=== PATIENT | female | born 1970 | race Caucasian/White ===

== ENCOUNTER → 2020-05-13 08:50 | Outpatient (BNVA) | payer BC, SELFPAY | PROVIDERS: PCP Internal Medicine; Visit Provider Physician Assistant | DX: Z76.89 Persons encountering health services in other specified circumstances (principal) ==

== ENCOUNTER → 2020-06-02 08:13 | Outpatient (BNVA) | payer BC, SELFPAY | PROVIDERS: PCP Internal Medicine; Visit Provider Dietitian, Registered | DX: Z76.89 Persons encountering health services in other specified circumstances (principal) ==

== ENCOUNTER 2020-07-27 08:53 | Day surgery (SDC) | payer BC, SELFPAY ==
[2020-07-20 15:30] VITALS: BMI 29.5
--- NOTE | 2020-07-26 10:58 | HO.ANESPROP2 ---
Documented by User: Karla Kulkarni 07/26/20 11:00 HPI - Anesthesia Eval Consult details Narrative: 50yo F for Colonoscopy PMFSH Past Medical History Medical History Anemia Arthralgia Central vestibular vertigo Lab test negative for COVID-19 virus Migraine Overweight (BMI 25.0-29.9) Varicose veins of bilateral lower extremities with other complications Vitamin D deficiency Family History Family History Father Stroke Diabetes mellitus Mother Diabetes mellitus HTN (hypertension) Son No problems noted. Son No problems noted. Son No problems noted. Surgical History Surgical History S/P tonsillectomy Social History Social History Are you a primary chronic care nurse to a significant other at home: No Do you presently have visiting nurse or other home services: No Alcohol intake: never Smoking Status: Never smoker Use of substances other than those prescribed or required for medical reasons: No Have you been hit, kicked, punched, or otherwise hurt by someone within the past year? If so, by whom?: No Advance Directives Information Provided: No Recently lost weight without trying: No Meds Allergies Allergy/AdvReac Type Severity Reaction Status Date / Time No Known Allergies Allergy Verified 06/07/20 13:23 [No Known Allergies*] Home Medications Medication Instructions Recorded Confirmed Type acetaminophen-caffeine 500 mg-65 1 tab PO Q4H PRN 05/26/20 07/20/20 History mg tablet amitriptyline 50 mg tablet 50 mg PO DAILY 06/22/20 07/20/20 History meclizine 12.5 mg PO BEDTIME 07/20/20 07/20/20 History Exam Exam Date and Time: July 26, 2020 1058 Height,Weight and Vital Signs: Height 5 ft 3 in Weight 75.75 kg Assessment and Plan Assessment Anesthesia Assessment: Chart Reviewed Documented by User: Simone Mariee 07/27/20 09:47 [facility] Past Medical History Medical History Anemia Arthralgia Central vestibular vertigo Lab test negative for COVID-19 virus Migraine Overweight (BMI 25.0-29.9) Varicose veins of bilateral lower extremities with other complications Vitamin D deficiency Family History Family History Father Stroke Diabetes mellitus Mother Diabetes mellitus HTN (hypertension) Son No problems noted. Son No problems noted. Son No problems noted. Surgical History Surgical History S/P tonsillectomy Social History Social History Are you a primary chronic care nurse to a significant other at home: No Do you presently have visiting nurse or other home services: No Alcohol intake: never Smoking Status: Never smoker Use of substances other than those prescribed or required for medical reasons: No Have you been hit, kicked, punched, or otherwise hurt by someone within the past year? If so, by whom?: No Advance Directives Information Provided: No Recently lost weight without trying: No Meds Allergies Allergy/AdvReac Type Severity Reaction Status Date / Time No Known Allergies Allergy Verified 06/07/20 13:23 [No Known Allergies*] Home Medications Medication Instructions Recorded Confirmed Type acetaminophen-caffeine 500 mg-65 1 tab PO Q4H PRN 05/26/20 07/20/20 History mg tablet amitriptyline 50 mg tablet 50 mg PO DAILY 06/22/20 07/20/20 History meclizine 12.5 mg PO BEDTIME 07/20/20 07/20/20 History Exam Airway Mallampati Class: II TM Dist: >3cm Neck ROM: Full
[2020-07-27 09:17] VITALS: BP 103/73; PULSE 77; RESP 16; TEMP 37; O2SAT 97
[2020-07-27] MEDS: Lactated Ringers 1,000 ML 100 ML IVCONT (09:27)
--- NOTE | 2020-07-27 09:59 | P.BOP_ITS ---
Brief Operative Note Date of Service: 07/27/20 Pre-op diagnosis: colon screen Post-op diagnosis: same Procedure: Operative Information Procedure Description: Colonoscopy COLONOSCOPY Instrument: Olympus variable stiffness pediatric scope 190L Colonoscopy Monitoring: Vital signs and clinical assessment, continuous EKG monitoring, Pulse oximetry, Carbon Dioxide monitoring and blood pressure monitoring were done throughout the procedure. Colon withdrawal time was 15 minutes. Procedure: The patient was placed in the left lateral decubitis position and pre-procedure medications were administered. After a digital rectal examination of the ano-rectum, the video colonoscope was inserted into the rectum and advanced through the colon to the cecum/TI. The colonoscope was slowly withdrawn in a retrograde panoramic fashion and the colon mucosa was carefully examined including a retroflexed view of the rectum. Findings and interventions are described below. Procedure Difficulty: easy Findings: Terminal Ileum-normal Cecum:normal Ascending Colon: normal Transverse Colon -normal Descending Colon:normal Sigmoid Colon: normal Rectum: Retroflexion with small internal hemorrhoids, grade I with some red garay Anorectum - normal Colon preparation: [place] Bowel Preparation Scale Right colon; 2 Transverse colon: 2 Left colon; 1 (0 = Unprepared colon segment with mucosa not seen due to solid stool that cannot be cleared. 1 = Portion of mucosa of the colon segment seen, but other areas of the colon segment not well seen due to staining, residual stool and/or opaque liquid. 2 = Minor amount of residual staining, small fragments of stool and/or opaque liquid, but mucosa of colon segment seen well. 3 = Entire mucosa of colon segment seen well with no residual staining, small fragments of stool or opaque liquid) Impression and Post Procedure Diagnosis: internal hemorrhoids Plan: High fiber diet leaflet Avoid straining at stool, epsom salts and sitz bath, anusol supps or cream prn Repeat Colonoscopy in 5 years due to prep or earlier if clinically indicated Above findings were reviewed with the patient and relevant handouts were provided if indicated. Surgeon: Win Novoa MD Anesthesia: MAC Estimated blood loss (mL): 0 Condition: stable Disposition: PACU
--- NOTE | 2020-07-27 09:59 | MHC.SHP ---
Pre-Procedural Eval Section B Chief Complaint: family hx colon polyps,screening Relevant Family History (Specify if Yes): No Relevant Social History: None Present Medications: see Short Stay Collaborative assessment Medical History: Significant History (Anemia Arthralgia Central vestibular vertigo Lab test negative for COVID-19 virus Migraine Overweight (BMI 25.0-29.9) Varicose veins of bilateral lower extremities with other complications Vitamin D deficiency) History of Previous Operations: Relevant previous surgery/procedure and date(s) (tonsils) Allergies: Allergies Allergy/AdvReac Type Severity Reaction Status Date / Time No Known Allergies Allergy Verified 06/07/20 13:23 [No Known Allergies*] Review of Systems Sugical H&P ROS: Negative: Constitution, Cardiovascular, Respiratory, Neurological, Psychiatric, Hem-Onc, Allergic/Immunologic, Gastrointestinal, Genitourinary, Musculoskeletal, Integumentary, Endocrine and Eyes/Ears/Nose/Throat Exam Surgical H&P Exam: Normal: HEENT, Normal: Heart, Normal: Lungs, Normal: Extremities, Normal: Abdomen, Normal: Skin and Normal: Neurological Plan Diagnosis/Plan: Unchanged I have reviewed the history and physical and performed a pertinent physical examination on my patient. No changes have occurred unless specified.
[2020-07-27 10:43] VITALS: BP 93/57; PULSE 79; RESP 14; TEMP 36.6; O2SAT 97
[2020-07-27 10:52] VITALS: BP 101/70; PULSE 76; RESP 14; TEMP 36.6; O2SAT 99
--- NOTE | 2020-07-27 14:11 | HO.POSTANES ---
Post Anesthesia Evaluation Post Anesthesia Evaluation Vital Signs: Vital Signs Temp Pulse Resp BP Pulse Ox 07/27/20 10:52 97.8 F 76 14 101/70 99 07/27/20 10:43 97.8 F 79 14 93/57 L 97 07/27/20 09:17 98.6 F 77 16 103/73 97 Anesthesia: Monitored Mental Status: Awake Pain Control: Satisfactory Nausea/Vomiting: None Hydration: Adequate Anesthesia-Related Issues: No Anes. Related Issues
== END 2020-07-27 11:33 | disposition home or self-care (01) ==
PROVIDERS: PCP Internal Medicine; Visit Provider Internal Medicine Gastroenterology
PROC: 0DJD8ZZ Inspection of Lower Intestinal Tract, Via Natural or Artificial Opening Endoscopic (ICD-10-PCS; CPT 45378; principal; 2020-07-27 10:40)
DX: Z12.11 Encounter for screening for malignant neoplasm of colon (principal); Z83.71 Family history of colonic polyps; K64.0 First degree hemorrhoids; D64.9 Anemia, unspecified; E55.9 Vitamin D deficiency, unspecified; H81.4 Vertigo of central origin; Z79.899 Other long term (current) drug therapy
CPT/HCPCS: 45378

== ENCOUNTER → 2020-09-14 09:27 | Outpatient (BNVA) | payer BC, SELFPAY | PROVIDERS: Visit Provider Nurse Practitioner ==

== ENCOUNTER 2020-12-27 08:42 | Outpatient (REF) | payer OTHER, SELFPAY ==
--- NOTE | ~2020-12-27 | XR_ITS ---
EXAMINATION: XR KNEE, LEFT CLINICAL INFORMATION: Pain COMPARISON: None TECHNIQUE: Four views of the left knee. FINDINGS: Bone alignment is normal. No fracture or dislocation is seen. The joint spaces are normal. There is a joint effusion. XR/XR knee LT 4V IMPRESSION: Joint effusion otherwise unremarkable exam.
== END 2020-12-27 08:43 | disposition home or self-care (01) ==
LOC: HO.HMGCX 08:42
PROVIDERS: PCP Internal Medicine; Visit Provider Nurse Practitioner Family
DX: M25.562 Pain in left knee (principal); M25.462 Effusion, left knee
CPT/HCPCS: 73564

== ENCOUNTER → 2020-12-30 08:57 | Outpatient (BNVA) | payer OTHER, SELFPAY | PROVIDERS: Visit Provider Orthopaedic Surgery ==

== ENCOUNTER → 2021-01-24 12:48 | Outpatient (BNVA) | payer OTHER, SELFPAY | PROVIDERS: Visit Provider Orthopaedic Surgery | DX: M22.2X2 Patellofemoral disorders, left knee (principal) | CPT/HCPCS: 20610; J1040 ==

== ENCOUNTER → 2021-06-22 13:47 | Outpatient (BNVA) | payer OTHER, SELFPAY | PROVIDERS: PCP Internal Medicine; Visit Provider Orthopaedic Surgery ==

== ENCOUNTER 2023-02-08 12:04 | Outpatient (REF) | payer OTHER, SELFPAY ==
--- NOTE | ~2023-02-08 | XR_ITS ---
EXAMINATION: XR HAND, RIGHT CLINICAL INFORMATION: Pain COMPARISON: Radiographs 08/24/2015 TECHNIQUE: 3 views of the hand FINDINGS: No fracture or dislocation. Advanced degenerative changes of the first metacarpophalangeal joint progressed from prior with complete loss of joint space and subchondral sclerosis. No cortical erosion. Soft tissues are unremarkable. XR/XR hand RT min 3V IMPRESSION: Advanced degenerative changes of the first metacarpophalangeal joint progressed from prior.
== END 2023-02-08 12:05 | disposition home or self-care (01) ==
LOC: HO.HOSX 12:04
PROVIDERS: Visit Provider Orthopaedic Surgery
DX: M18.11 Unilateral primary osteoarthritis of first carpometacarpal joint, right hand (principal); M18.12 Unilateral primary osteoarthritis of first carpometacarpal joint, left hand; M65.9 Synovitis and tenosynovitis, unspecified
CPT/HCPCS: 20600; 73130; J1020

== ENCOUNTER 2023-03-11 10:15 | Outpatient (AMB) | payer OTHER, SELFPAY ==
--- NOTE | 2023-03-11 10:25 | MHC.PC.OV ---
Intake Visit Reasons: RT FT injury Intake Note: pt is here today to recheck right foot injury 1.5 weeks ago al during her vacation, went to [facility] where x-ray done did not show any acute finding Allergies No Known Allergies [No Known Allergies*] Allergy (Verified 03/11/23 10:33) Medication List - Last Reconciled 03/11/23 by Tere Renae MD acetaminophen-caffeine 500-65 mg (Excedrin Tension Headache) 1 tab PO Q4H PRN meclizine 25 mg PO DAILY PRN Tobacco use date assessed: 03/11/23 HPI RT FT injury HPI Details 52-year-old lady presents today for follow-up. Was seen at the [facility] 03/09/2023 complaining of pain in her right foot, which started during vacation 1.5 weeks prior to that visit. Patient states that [place] the [place] on [place] in jumped off it, landed wrong and right big toe well underneath her right foot. X-ray of foot did not show any abnormality. She was diagnosed to have gouty arthritis of right foot and placed on prednisone 20 mg daily for 4 days, and indomethacin 50 mg 1 capsule twice a day as needed for pain. Patient however did not fill any of these prescriptions. She has been advised to rest affected extremity, ice it, and elevate as much as possible, which she has been doing, but still having pain on dorsal lateral aspect of right MTP joint with weight-bearing. [facility] Medical History (Updated 03/11/23 @ 10:42 by Tere Renae MD) Anemia Arthralgia Central vestibular vertigo Lab test negative for COVID-19 virus Migraine Overweight (BMI 25.0-29.9) Pain of right great toe Tenosynovitis of both hands Varicose veins of bilateral lower extremities with other complications Vitamin D deficiency Surgical History Hx of colonoscopy S/P tonsillectomy Family History Father Stroke Diabetes mellitus Mother Diabetes mellitus HTN (hypertension) Son No problems noted. Son No problems noted. Son No problems noted. 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 Cognitive needs: No Hearing needs: No Vision needs: Yes Review of Systems Const All systems reviewed & are unremarkable except as noted in HPI and below Physical exam (Primary Care) Tobacco/Smoking Status: Tobacco use Status Tobacco use date assessed 03/11/23 03/11/23 10:27 Patient Tobacco Use Status Never used Tobacco 03/11/23 10:27 e-Cigarette/Vaping Use Never Used 03/11/23 10:27 Const Other: Alert oriented x3, walks with a slight limping gait favoring right leg Skin Other: No erythema or increased warmth over affected joint, no skin lesions, no rash Extrem Other: Positive beginning bunion right big toe, right MTP joint tender to palpation, no joint swelling or erythema seen, has full range of motion in all toes bilaterally Assessment and Plan Assessment & Plan (1) Pain of right great toe: Code(s): M79.674 - Pain in right toe(s) Plan: Rule out hairline fracture, versus sprain, x-ray ordered of right foot. Advised to fill her prescription for indomethacin tablet, already sent by [facility] 2 days again, take 1 tablet twice a day only for severe pain in always take it with meal. Continue icing alternating with heat to affected joint, elevate legs as much as possible avoid weight-bearing for at least 1 more week. She can also try applying Salonpas patch to affected joint twice a day as needed Orders: Orders XR toe RT min 2V Today M79.674 - Pain in right toe(s) Coding Level of Care Code Est Pt Level 3 (00268) Diagnoses Pain of right great toe M79.674
== END 2023-03-11 11:14 | disposition home or self-care (01) ==
PROVIDERS: PCP Internal Medicine; Visit Provider Internal Medicine
DX: M79.674 Pain in right toe(s) (principal)
CPT/HCPCS: 99213

== ENCOUNTER 2023-03-11 10:47 | Outpatient (REF) | payer OTHER, SELFPAY ==
--- NOTE | ~2023-03-11 | XR_ITS ---
EXAMINATION: XR TOES, RIGHT CLINICAL INFORMATION: Left first digit pain status post trauma. COMPARISON: None available. TECHNIQUE: 3 views of the right toes were obtained. End indicating arrow points to the distal first digit. FINDINGS: There is no acute fracture or dislocation. The joint spaces are unremarkable. Small linear radiopaque densities overlie the distal, medial aspect of the nail. The surrounding soft tissues are otherwise unremarkable. XR/XR toe RT min 2V IMPRESSION: 1. No acute osseous abnormality. 2. Small linear radiopaque densities overlie the nail. Correlate with physical exam.
== END 2023-03-11 10:48 | disposition home or self-care (01) ==
LOC: HO.HMGCX 10:47
PROVIDERS: PCP Internal Medicine; Visit Provider Internal Medicine
DX: M79.674 Pain in right toe(s) (principal)
CPT/HCPCS: 73660

== ENCOUNTER 2024-01-01 12:50 | Outpatient (AMB) | payer OTHER, SELFPAY ==
[2024-01-01 13:06] VITALS: BP 90/66; PULSE 70; O2SAT 98; BMI 25.5
--- NOTE | 2024-01-01 13:06 | A.OFFPC_ITS ---
Vital Signs 01/01/24 13:06 Height 5 ft 3 in Weight 144 lb BMI 25.5 BP 90/66 Blood Pressure Location Rt brachial Position Sitting Pulse 70 Pulse Source Pulse Oximeter Pulse Oximetry (%) 98 Oxygen Delivery Method Room Air Intake Visit Reasons: Follow Up Intake Note: Pt is here today to discuss memory loss Allergies No Known Allergies [No Known Allergies*] Allergy (Verified 01/01/24 13:33) Medication List - Last Reconciled 01/01/24 by Tere Renae MD acetaminophen-caffeine 500-65 mg (Excedrin Tension Headache) 1 tab PO Q4H PRN meclizine 25 mg PO DAILY PRN Tobacco use date assessed: 01/01/24 Dental Screening Dental Screen Date: 01/01/24 Did you have a dental visit in the last 12 months?: No Was dental information given to patient?: Patient has dentist HPI Follow Up HPI Details 53-year-old lady here today for complain ing of problems with memory, difficulty with processing new things, problem recalling things, can?t focus their attention . She has resorted to writing things down to remember it, All this started after she contracted Covid in 08/2023 [facility] Medical History Migraine Varicose veins of bilateral lower extremities with other complications Vitamin D deficiency Central vestibular vertigo Arthralgia Overweight (BMI 25.0-29.9) Surgical History Hx of colonoscopy S/P tonsillectomy Family History Father Stroke Diabetes mellitus Mother Diabetes mellitus HTN (hypertension) Son No problems noted. Son No problems noted. Son No problems noted. 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 1. Little interest or pleasure in doing things: not at all 2. Feeling down, depressed, or hopeless: not at all 3. Trouble falling or staying asleep, or sleeping too much: not at all 4. Feeling tired or having little energy: not at all 5. Poor appetite or overeating: not at all 6. Feeling bad about yourself - or that you are a failure or have let yourself or your family down: not at all 7. Trouble concentrating on things, such as reading the newspaper or watching television: not at all 8. Moving or speaking so slowly that other people could have noticed. Or the opposite - being so fidgety or restless that you have been moving around a lot more than usual: not at all 9. Thoughts that you would be better off or of hurting yourself in some way: not at all Total score: 0 Depression Screening Interpretation: Negative Depression Screening Done: Yes 25192 - PHQ-9 Billing: Yes Source: Developed by Drs. Ryland Mcginnis, So Zapien, Elliott Alves and colleagues, with an educational michelle from [employer]. AUDIT C Alcohol Use Questionnaire (AUDIT-C) 1. How often do you have a drink containing alcohol?: Never Total Score: 0 MIRIAN-7 AMB Questionnaire MIRIAN-7 Date MIRIAN - 7 assessed: 01/01/24 Feeling nervous, anxious, or on edge: 0 = Not at all Not being able to stop or control worryin = Not at all Worrying too much about different things: 0 = Not at all Trouble relaxin = Not at all Being so restless that it is hard to sit still: 0 = Not at all Becoming easily annoyed or irritable: 0 = Not at all Feeling afraid as if something awful might happen: 0 = Not at all Total MIRIAN-7 score (0-4 normal; 5-9 mild; 10-14 moderate; 15-21 severe): 0 Source: Developed by Drs. Ryland Mcginnis, So Zapien, Elliott Alves and colleagues, with an educational michelle from [employer]. MIRIAN-7 Assessment Billing MIRIAN-7 Assessment Tool: MIRIAN-7 Assessment 28331 Review of Systems Const All systems reviewed & are unremarkable except as noted in HPI and below Physical exam (Primary Care) Vital Signs: Last Vital Signs Pulse 70 01/01/24 13:06 BP 90/66 01/01/24 13:06 Pulse Ox 98 01/01/24 13:06 Oxygen Delivery Method Room Air 01/01/24 13:06 BMI result Body Mass Index 25.5 Tobacco/Smoking Status: Tobacco use Status Tobacco use date assessed 01/01/24 01/01/24 13:13 Patient Tobacco Use Status Never used Tobacco 01/01/24 13:13 e-Cigarette/Vaping Use Never Used 01/01/24 13:13 PHQ-9: PHQ-9 Score PHQ-9: Total score 0 01/01/24 13:42 Depression Screening Interpretation: Negative Const General: comfortable, no acute distress and alert Orientation/consciousness: patient oriented x3 HENMT Ears: external ears normal General nose exam: Normal external nose present Mouth: Normal oral and palatal mucosa present, oropharynx normal and moist mucous membranes Eyes General: appearance normal, both eyes and all related structures Neck Neck: Yes full ROM, Yes no lymphadenopathy and Yes supple Resp Effort & Inspection: normal respiratory effort and able to speak in complete sentences Auscultation: clear to auscultation bilaterally Cardio Rate: regular rate Rhythm: regular rhythm Heart sounds: S1 normal heart sound present and S2 normal heart sound present GI Palpation (GI): Soft to palpation, nontender and no masses Auscultation: normal bowel sounds Skin General skin exam: no rashes or lesions noted Neuro General: patient oriented x3, gait normal, tone normal, moves all extremities, Normal light touch and pain sensation and no focal motor deficits Cranial nerves: Yes CN's II-XII intact bilaterally Cognition (Neuro): normal cognition Extrem General: Yes full ROM, Yes no joint enlargement, Yes no clubbing, cyanosis or edema and Yes no calf tenderness Psych Appearance: grossly normal and well kempt Mental Status: mental status grossly normal Speech and movement: Normal speech and movement present Affect: normal affect Attitude: cooperative Thought process: Normal thought process present Thought content: Normal thought content present, suicidality and no homicidality Coding Level of Care Code Est Pt Level 3 (39777) Diagnoses Brain fog R41.89 Additional Codes MIRIAN-7 Assessment Billing - MIRIAN-7 Assessment Tool: MIRIAN-7 Assessment 10475 ([id number])
== END 2024-01-01 14:09 | disposition home or self-care (01) ==
PROVIDERS: PCP Internal Medicine; Visit Provider Internal Medicine
DX: R41.89 Other symptoms and signs involving cognitive functions and awareness (principal)
CPT/HCPCS: 99499

== ENCOUNTER 2025-07-09 13:03 | Outpatient (AMB) | payer OTHER, SELFPAY ==
--- NOTE | 2025-07-09 13:06 | A.OFFPC_ITS ---
Vital Signs 07/09/25 13:11 Height 5 ft 3 in Weight 143 lb 8 oz BMI 25.4 BP 100/62 Blood Pressure Location Rt brachial Position Sitting Respiration 15 Pulse 84 Pulse Source Pulse Oximeter Temp 97.8 F Temp Source Temporal Artery Scan Pulse Oximetry (%) 99 Oxygen Delivery Method Room Air Intake Visit Reasons: GLYNN from Dr. Renae - see comments Intake Note: Bhavna presents in the office today to establish care. Manager Background Required: No Is last menstrual period known: No Post menopausal: No Patient : No Allergies No Known Allergies (No Known Allergies*) Allergy (Verified 07/09/25 13:09) Medication List - Last Reconciled 07/09/25 by Barrington Mitchell MD acetaminophen-caffeine 500-65 mg (Excedrin Tension Headache) 1 tab PO Q4H PRN ascorbate calcium (vitamin C) 500 mg PO DAILY meclizine 25 mg PO DAILY PRN sumatriptan succinate take 1 tab at onset of headache; if no relief may repeat 1 tab after at least 2 hrs; max = 4 tabs/24 hr PO 30 days Tobacco use date assessed: 07/09/25 Dental Screening Dental Screen Date: 07/09/25 Did you have a dental visit in the last 12 months?: No Did you have a dental problem in the last 6 months where you did not have access to dental care?: No Was dental information given to patient?: Patient declined HPI GLYNN from Dr. Renae - see comments HPI Details Transfer of Care? ?? Prior PCP: Dr. Renae? Last office visit/CPE:? Acute issue(s):? Colonoscopy - [facility] Vertigo daily to every 3 days x years. Saw ENT, Centroid vertigo L hand ligament tear and reconstruction - now immobilizer. Elyssa Die[facility] ?? PMHx:? Arthritis, tenosinovitis, Migraines, vertigo, SurgHx:?L hand. FHx:? Dad: Parkinsons, DM. Mom: Kidney failure, HTN. 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 Nonsmoker, Etoh. No drugs PFSH Medical History Migraine Varicose veins of bilateral lower extremities with other complications Vitamin D deficiency Central vestibular vertigo Arthralgia Overweight (BMI 25.0-29.9) Surgical History Hx of colonoscopy S/P tonsillectomy Family History Father Stroke Diabetes mellitus Mother Diabetes mellitus HTN (hypertension) Son No problems noted. Son No problems noted. Son No problems noted. 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 1. Little interest or pleasure in doing things: not at all 2. Feeling down, depressed, or hopeless: not at all 3. Trouble falling or staying asleep, or sleeping too much: not at all 4. Feeling tired or having little energy: more than half the days 5. Poor appetite or overeating: not at all 6. Feeling bad about yourself - or that you are a failure or have let yourself or your family down: not at all 7. Trouble concentrating on things, such as reading the newspaper or watching television: not at all 8. Moving or speaking so slowly that other people could have noticed. Or the opposite - being so fidgety or restless that you have been moving around a lot more than usual: not at all 9. Thoughts that you would be better off or of hurting yourself in some way: not at all Total score: 2 Depression Screening Interpretation: Negative Depression Screening Done: Yes 14993 - PHQ-9 Billing: Yes Source: Developed by Drs. Ryland Mcginnis, So Zapien, Elliott Alves and colleagues, with an educational michelle from [employer]. Thrive Questionnaire Date Thrive assessed: 07/09/25 I am a: Patient What is your living situation today?: I have a steady place to live Within the past 12 months, did the food you bought not last and you didn't have the money to get more?: Never true Within the past 12 months, did you worry whether your food would run out before you got money to buy more?: Never true Do you have trouble paying for medicines?: No Do you have trouble getting transportation to medical appointments?: No Do you have trouble paying your heating and electricity bill?: No Do you have trouble taking care of your child, family member or friend?: No Do you have trouble with day-to-day activities such as bathing, preparing meals, shopping, managing finances, etc.?: No Are you currently unemployed and looking for a job?: No Are you interested in more education?: No Please select the resources that you would like help with: None Currently or been in a relationship where the following occur: No concerns reported THRIVE Score: 0 AUDIT C Alcohol Use Questionnaire (AUDIT-C) 1. How often do you have a drink containing alcohol?: Never 3. How often do you have six or more drinks on one occasion?: Never Total Score: 0 MIRIAN-7 AMB Questionnaire MIRIAN-7 Date MIRIAN - 7 assessed: 07/09/25 Feeling nervous, anxious, or on edge: 0 = Not at all Not being able to stop or control worryin = Not at all Worrying too much about different things: 0 = Not at all Trouble relaxin = Not at all Being so restless that it is hard to sit still: 0 = Not at all Becoming easily annoyed or irritable: 0 = Not at all Feeling afraid as if something awful might happen: 0 = Not at all Total MIRIAN-7 score (0-4 normal; 5-9 mild; 10-14 moderate; 15-21 severe): 0 Source: Developed by Drs. Ryland Mcginnis, So Zapien, Elliott Alves and colleagues, with an educational michelle from [employer]. MIRIAN-7 Assessment Billing MIRIAN-7 Assessment Tool: MIRIAN-7 Assessment 55700 Review of Systems Const Denies chills, Denies fatigue, Denies fever(s), Denies headache(s) and Denies weakness ENT Denies dizziness and Denies headache(s) Card Denies chest pain, Denies lightheadedness, Denies dyspnea and Denies other (Palp itations) Resp Denies cough, Denies dyspnea, Denies wheezing and Denies other ( shortness of breath) Musc Denies numbness and Denies tingling Neuro Denies dizziness, Denies headache(s), Denies numbness, Denies tingling, Denies paresthesias and Denies weakness Psych Denies anxiety and Denies depression Endo Denies fatigue Aller/Immun Denies wheezing Physical exam (Primary Care) Vital Signs: Last Vital Signs Temp 97.8 F 07/09/25 13:11 Pulse 84 07/09/25 13:11 Resp 15 07/09/25 13:11 BP 100/62 07/09/25 13:11 Pulse Ox 99 07/09/25 13:11 Oxygen Delivery Method Room Air 07/09/25 13:11 BMI result Body Mass Index 25.4 Tobacco/Smoking Status: Tobacco use Status Tobacco use date assessed 07/09/25 07/09/25 13:13 Patient Tobacco Use Status Never used Tobacco 07/09/25 13:13 e-Cigarette/Vaping Use Never Used 07/09/25 13:13 PHQ-9: PHQ-9 Score PHQ-9: Total score 2 07/09/25 13:13 Depression Screening Interpretation: Negative Thrive Assessment: Date of Thrive Assessment Date Thrive assessed 07/09/25 07/09/25 13:13 Currently or been in a relationship where the following occur: No concerns reported Const General: no acute distress and well developed Nutritional Appearance: well nourished Orientation/consciousness: patient oriented x3 [facility] Head: Yes normocephalic and Yes atraumatic Eyes General: appearance normal, both eyes and all related structures Pupils: Equal, round and reactive pupils present EOM: EOMs intact bilaterally Resp Effort & Inspection: normal respiratory effort Auscultation: clear to auscultation bilaterally Cardio Rate: regular rate Rhythm: regular rhythm Heart sounds: S1 normal heart sound present, S2 normal heart sound present, no gallops, no murmurs and no rubs Neuro General: patient oriented x3 and gait normal Cranial nerves: Yes Equal, round and reactive pupils present Psych Affect: normal affect Coding Level of Care Code New Pt Level 3 (48236) Diagnoses Vertigo R42 Migraine G43.909 Arthralgia M25.50 Family history of colonic polyps Z83.71 Screening for colon cancer Z12.11 Hypersomnia G47.10 Laboratory exam ordered as part of routine general medical examination Z00.00 Additional Codes MIRIAN-7 Assessment Billing - MIRIAN-7 Assessment Tool: MIRIAN-7 Assessment 04246 ([id number]) PHQ-9 - 75668 - PHQ-9 Billing: Yes ([id number]) Assessment & Plan Assessment & Plan (1) Vertigo: Code(s): R42 - Dizziness and giddiness Category: Medical Plan: Patient notes longstanding vertigo She does have lateral nystagmus Otherwise neurologically intact She has seen ENT in the past and tried medications such as meclizine. No improvement. Has never tried vestibular rehab for seen neurologist Will send her for physical therapy/vestibular rehab If no improvement will consider imaging or referral to Neurology (2) Migraine: Code(s): G43.909 - Migraine, unspecified, not intractable, without status migrainosus Category: Medical Plan: She gets several migraines per month Has never tried in abortive medication Can try sumatriptan She also has issues with sleep and may be a symptom of apnea Evaluate for underlying conditions (3) Arthralgia: Code(s): M25.50 - Pain in unspecified joint Category: Medical Plan: Longstanding history of arthritis and tenosynovitis Checking inflammatory markers and autoimmune markers Followed by a hand surgeon (4) Family history of colonic polyps: Comment: Mother, patient's 2020 scope no polyps repeat 5 years Code(s): Z83.71 - Family history of colonic polyps Category: Medical Plan: [place] [facility] [place] would like referral back [place] [facility] [place]referred (5) Screening for colon cancer: Code(s): Z12.11 - Encounter for screening for malignant neoplasm of colon Category: Medical Plan: As above, [place] [facility] [place] (6) Hypersomnia: Code(s): G47.10 - Hypersomnia, unspecified Category: Medical Plan: Patient notes on restful sleep and daytime sleepiness and fatigue. Also gets frequent migraine Referred to sleep medicine to last sleep apnea (7) Laboratory exam ordered as part of routine general medical examination: Code(s): Z00.00 - Encounter for general adult medical examination without abnormal findings Category: Medical Plan: Check labs Orders: Orders Complete Blood Count Auto Diff Today G47.30 - Sleep apnea, unspecified, Z00.00 - Encounter for general adult medical examination without abnormal findings IRON PROFILE Today Z00.00 - Encounter for general adult medical examination without abnormal findings Lipid Panel Today Z00.00 - Encounter for general adult medical examination without abnormal findings Vitamin B12 and Folate Today E53.8 - Deficiency of other specified B group vitamins UA CC w/rflx Micro + Cult Today Z00.00 - Encounter for general adult medical examination without abnormal findings CRP High Sensitivity Today M25.50 - Pain in unspecified joint PT Evaluation and Treatment Today R42 - Dizziness and giddiness Microalbumin, Random (w Creat) Today I10 - Essential (primary) hypertension TSH reflex Free T4 Today Z00.00 - Encounter for general adult medical examination without abnormal findings Vitamin D 25-OH Total Today E55.9 - Vitamin D deficiency, unspecified Erythrocyte Sedimentation Rate Today M25.50 - Pain in unspecified joint PONCE Reflex Titer and Pattern Today M25.50 - Pain in unspecified joint Rheumatoid Factor Today M25.50 - Pain in unspecified joint Referrals Sleep Medicine Referral G47.10 - Hypersomnia, unspecified Gastroenterology Referral Z12.11 - Encounter for screening for malignant neoplasm of colon, Z83.71 - Family history of colonic polyps Medications: New sumatriptan succinate take 1 tab at onset of headache; if no relief may repeat 1 tab after at least 2 hrs; max = 4 tabs/24 hr PO 9 tabs 0RF 30 days G43.909 - Migraine, unspecified, not intractable, without status migrainosus
[2025-07-09 13:11] VITALS: BP 100/62; PULSE 84; RESP 15; TEMP 36.6; O2SAT 99; BMI 25.4
--- OUTSIDE RECORDS SUMMARY | 2025-07-09 17:00 | XMS_ITS ---
Author Name [facility] Organization Unknown History of Medication Use Medication Directions Dispensed Refills Start Date End Date Stat Vitamin C 500 mg tablet Take 1 tablet every day by oral route. 06/18/2025 active Medrol (Juanpablo) 4 mg tablets in a dose pack take as directed 04/21/2025 active ibuprofen 600 mg tablet Take 1 tablet 3 times a day by oral route for 30 days. 03/24/2025 active lidocaine (PF) 10 mg/mL (1 %) injection solution Take 1 mL by injection route. 03/24/2025 active triamcinolone acetonide 40 mg/mL suspension for injection Take 40 mg by injection route. 03/24/2025 active fentaNYL (PF) (SUBLIMAZE) injection intravenous, Code/trauma/sedatio n medication, Starting on Sat03/15/25 at 0716 03/15/2025 03/15/20 completed midazolam (VERSED) injection intravenous, Code/trauma/sedatio n medication, Starting on Sat03/15/25 at 0717 03/15/2025 03/15/20 completed acetaminophen (TYLENOL) tablet 650 mg 650 mg, oral, Once as needed, mild pain, pain (1-3), Starting on Sat03/15/25 at 1024, For 1 dose, Recovery (only), pain (1-3) 03/15/2025 active dexAMETHasone (DECADRON) injection 4 mg 4 mg, intravenous, Once as needed, nausea and vomitting, Starting on Sat03/15/25 at 1024, For 1 dose, Recovery (only), Administer 2nd unless given in OR 03/15/2025 active diphenhydrAMINE (BENADRYL) injection 12.5 mg 12.5 mg, intravenous, Once as needed, itching, nausea, vomiting, Starting on Sat03/15/25 at 1024, For 1 dose, Recovery (only) 03/15/2025 active fentaNYL (PF) (SUBLIMAZE) injection 100 mcg 100 mcg, intravenous, Once as needed, severe pain, Starting on Sat03/15/25 at 0658, For 1 dose, Preprocedure 03/15/2025 active HYDROmorphone (DILAUDID) injection 0.2 mg 0.2 mg, intravenous, Every 15 min PRN, moderate pain, Starting on Sat03/15/25 at 1024, For 4 doses, Recovery (only), For pain (4-6). DO NOT EXCEED 2MG 03/15/2025 active HYDROmorphone (DILAUDID) injection 0.5 mg 0.5 mg, intravenous, Every 15 min PRN, severe pain, Starting on Sat03/15/25 at 1024, For 4 doses, Recovery (only), For pain (7-10). 03/15/2025 active ipratropium-albutero L (DUONEB) 0.5-2.5 mg/3 mL nebulizer solution 3 mL 3 mL, nebulization, Once as needed, wheezing, Starting on Sat03/15/25 at 1024, For 1 dose, Recovery (only) 03/15/2025 active lactated Ringer's infusion 100 mL/hr, intravenous, Continuous, Starting on Sat03/15/25 at 0630, Preprocedure 03/15/2025 active meperidine (PF) (DEMEROL) 25 mg/mL injection 12.5 mg 12.5 mg, intravenous, Every 30 min PRN, shivering, Starting on Sat03/15/25 at 1024, For 2 doses, Recovery (only), Infuse over 5 minutes. 03/15/2025 active ondansetron (PF) (ZOFRAN) injection 4 mg 4 mg, intravenous, Once as needed, nausea, vomiting, Starting on Sat03/15/25 at 1024, For 1 dose, Recovery (only), Infuse over 2 minutes. Administer 1st unless given in OR then give dexamethasone 03/15/2025 active orphenadrine (NORFLEX) injection 30 mg 30 mg, intravenous, Once as needed, muscle spasms, Starting on Sat03/15/25 at 1024, For 1 dose, Recovery (only) 03/15/2025 active oxyCODONE (ROXICODONE) immediate release tablet 5 mg 5 mg, oral, Every 4 hours PRN, moderate pain, severe pain, for pain 4-6, Starting on 03/15/25 at 1024, For 2 doses, Recovery (only) 03/15/2025 active amoxicillin 500 mg tablet TAKE 1 TABLET BY MOUTH EVERY 8 HOURS UNTIL FINISHED 02/20/20 completed ibuprofen 600 mg tablet active lidocaine (PF) 10 mg/mL (1 %) injection solution active triamcinolone acetonide 40 mg/mL suspension for injection active Medrol (Juanpablo) 4 mg tablets in a dose pack active Vitamin C 500 mg tablet active cyclobenzaprine 5 mg tablet TAKE 1 TABLET BY MOUTH THREE TIMES DAILY FOR 5 DAYS active diclofenac potassium 50 mg tablet TAKE 1 TABLET BY MOUTH THREE TIMES DAILY FOR 3 DAYS NEEDED FOR PAIN active ibuprofen 800 mg tablet TAKE 1 TABLET BY MOUTH EVERY 8 HOURS NEEDED FOR SEVERE PAIN active meloxicam 15 mg tablet TAKE 1 TABLET BY MOUTH DAILY FOR 7 DAYS active oxycodone 5 mg tablet TAKE 1 TABLET BY MOUTH EVERY 4 TO 6 HOURS active prednisone 50 mg tablet TAKE 1 TABLET BY MOUTH DAILY FOR 5 DAYS active Zepbound 2.5 mg/0.5 mL subcutaneous pen injector INJECT 1 SYRINGE SUBCUTANEOUSLY ONCE A WEEK FOR 4 WEEKS active acetaminophen (TYLENOL) 500 mg tablet Take 1 tablet (500 mg total) by mouth every 6 (six) hours if needed for mild pain or moderate pain. active Problems Problem Status Onset Date Problem Type Date of Resolution Source Rupture of scapholunate ligament of wrist active 2025-03-24 ProblemAct ENS_AONECT Complex regional pain syndrome type I of left upper limb active 2025-06-18 ProblemAct ENS_AONECT Closed fracture of scaphoid bone active 2025-02-19 ProblemAct ENS_AONECT Sprain of other part of right wrist and hand, initial encounter active EncounterDiagnosisAct C T_THSFRAN Encounters Encounter Type Encounter Reason Primary Diagnosis Location Date Ambulatory [facility] 07/01/2025 Ambulatory [facility] 06/18/2025 Ambulatory [facility] 06/01/2025 Ambulatory [facility] 05/27/2025 Ambulatory UNKNOWN NOT LISTED UNKNOWN NOT LISTED [facility] 05/20/2025 Ambulatory [facility] 05/19/2025 Ambulatory [facility] 05/18/2025 Ambulatory [facility] 04/20/2025 Ambulatory [facility] 03/29/2025 Ambulatory [facility] 03/15/2025 Ambulatory [facility] 03/15/2025 Ambulatory Sprain of other part of right wrist and hand, initial encounter Sprain of other part of right wrist and hand[place] [facility] [place] Encounter for other preprocedural examination [place] other [place] [facility] [place] [facility] 03/04/2025 Ambulatory [facility] 03/03/2025 Ambulatory [facility] 02/22/2025 Ambulatory [facility] 02/19/2025 Ambulatory [facility] 02/19/2025 Ambulatory [facility] 02/19/2025 Ambulatory [facility] 02/19/2025 Ambulatory [facility] 02/19/2025 Ambulatory [facility] 02/17/2025 Care Team Organization Name Specialty Phone Email Start Date End Da te [facility] 05/20/2025 [facility] 03/17/2025 [facility] 03/15/2025 [facility] 03/09/2025 [facility] 03/08/2025
--- OUTSIDE RECORDS SUMMARY | 2025-07-09 17:01 | XMS_ITS | Clinical Summary ---
Author Organization [facility] Address [address] [place] [address] Phone Care Team Providers Care Asbestos Siding Mechanic Name Role Phone Barrington Mitchell MD Primary Care Provider [phone] Allergies No known active allergies Medications acetaminophen (TYLENOL) 500 mg tablet Take 1 tablet (500 mg total) by mouth every 6 (six) hours if needed for mild pain or moderate pain. Active Encounters Date Type Department Care Team Description 05/20/2025 12:24 PM EDT Anesthesia Event [facility] [address] [place] [phone] Amee Ni DO 05/20/2025 11:53 AM EDT - 05/20/2025 1:48 PM EDT Surgery [facility] [address] [place] [phone] Charo Montes MD LEFT WRIST HARDWARE REMOVAL 05/20/2025 10:11 AM EDT - 05/20/2025 2:42 PM EDT Hospital Encounter [facility] [address] [place] [phone] Charo Montes MD Discharge Disposition: Home or Self Care from Last 3 Months Surgical History Surgery Date Site/Laterality Comments COLONOSCOPY WRIST SURGERY Left Repair of torn ligament; reconstruction Medical History Medical History Date Comments Left scapholunate ligament tear Social History Tobacco Use Types Packs/Day Years Used Date Smoking Tobacco: Never Smokeless Tobacco: Never Alcohol Use Standard Drinks/Week Comments Not Currently 0 (1 standard drink = 0.6 oz pur e alcohol) Interpersonal Safety Answer Date Record ed Physical Abuse Unrecognized value 05/20/2025 Verbal Abuse Unrecognized value 05/20/2025 Comments No Sex and Gender Information Value Date Recorded Sex Assigned at Not on file Legal Sex Female 8:28 AM EST Gender Identity Not on file Sexual Orientation Not on file Obstetrics History Last Filed Vital Signs Vital Sign Reading Time Taken Comments Blood Pressure 102/79 05/20/2025 2:00 PM EDT Pulse 99 05/20/2025 2:00 PM EDT Temperature 36.6 C (97.8 F) 05/20/2025 1:05 PM EDT Respiratory Rate 19 05/20/2025 2:00 PM EDT Oxygen Saturation 99% 05/20/2025 2:00 PM EDT Inhaled Oxygen Concentration - - Weight 64.4 kg (142 lb) 05/19/2025 3:00 PM EDT Height 160 cm (5' 3 ) 05/19/2025 3:00 PM EDT Body Mass Index 25.15 05/19/2025 3:00 PM EDT Plan of Treatment Health Maintenance Due Date Last Done Comments Breast Cancer Screening 1969 Colorectal Cancer Screening: Colonoscopy 1969 DTaP,Tdap,and Td Vaccines (1 - Tdap) 1988 Cervical Cancer Screening: P ap Smear 1990 Pneumococcal Vaccine: 50+ Years (1 of 1 - PCV) 2019 Zoster Vaccines (1 of 2) 2019 Hepatitis B Vaccines (2 of 3 - 19+ 3-dose series) 07/25/2021 06/27/2021 Depression Screening 08/05/2024 HIV Screening 03/11/2025 Hepatitis C Screening 03/11/2025 Social Influencers of Health Screening 03/11/2025 COVID-19 Vaccine (4 - 2024-2 6 season) 2025 01/07/2022, 12/05/2020, 11/06/2020 Influenza Vaccine (#1) 2025 RSV Immunization Adult Patients (1 - 1-dose 75+ series) 2044 MMR Vaccines Aged Out 06/27/2021 No longer eligi ble based on patient's age to complete this topic HIB Vaccines Aged Out No longer eligi ble based on patient's age to complete this topic HPV Vaccines Aged Out No longer eligi ble based on patient's age to complete this topic Hepatitis A Vaccines Aged Out No long er eligible based on patient's age to complete this topic IPV Vaccines Aged Out No longer eligi ble based on patient's age to complete this topic Meningococcal ACWY Vaccine Aged Out N o longer eligible based on patient's age to complete this topic Meningococcal B Vaccine Aged Out No l onger eligible based on patient's age to complete this topic RSV Immunization Patients Under 20 months Aged Out No longer eligible b ased on patient's age to complete this topic Varicella Vaccines Aged Out No longer eligible based on patient's age to complete this topic Medical Devices Implanted Type Area Mobile Ui Designer Device Identifier Shelf Expiration Date Model / Serial / Lot Kit Dx Swivelock 3.5x8.5mm W/Fork Eyelet - Sn/A - [id number] Implanted:Qty : 1 on 03/15/2025 by Charo Montes MD at [facility] [employer] Sports Med Left: Hand [employer] 10/02/2025 AR-[id number] / N/A / [id number] H/W Lgmnt Augmnt Repair - Sn/A - [id number] Implanted:Qty : 1 on 03/15/2025 by Charo Montes MD at [facility] [employer] Sports [employer] Left: Hand [employer] 04/04/2028 AR-8978-[id number] / N/A / [id number] Procedures Procedure Name Priority Date/Time Associated Diagnosis Comments REMOVAL IMPLANT 05/20/2025 12:04 PM EDT POC , URINE DIAGNOSTIC STAT 05/20/2025 10:45 AM EDT from Last 3 Months Results * (ABNORMAL) POC , urine manually resulted (05/20/2025 10:45 AM EDT) HCG, Ur POC Negative(A ) Negative POC hCG Int QC Pass? Yes Yes EXPIRATION DATE POC Comment:n/a LOT NUMBER POC Comment:n/a Urine Urine specimen obtained by clean catch procedure / Unknown 05/20/2025 10:45 AM EDT Charo Montes MD POINT OF CARE TEST ENTER/EDIT ORDERABLES Final Result from Last 3 Months Insurance Care Teams Asbestos Siding Mechanic Relationship Specialty Start Date End Date Barrington Mitchell MD [address] [place] [address] Dr Blanca [place] PCP - General Family Medicine 03/08/25
== END 2025-07-09 13:47 | disposition home or self-care (01) ==
PROVIDERS: PCP Family Medicine; Visit Provider Family Medicine
DX: R42 Dizziness and giddiness (principal); G43.909 Migraine, unspecified, not intractable, without status migrainosus; M25.50 Pain in unspecified joint; Z83.719 Family history of colon polyps, unspecified; Z12.11 Encounter for screening for malignant neoplasm of colon; G47.10 Hypersomnia, unspecified; Z00.00 Encounter for general adult medical examination without abnormal findings

== ENCOUNTER → 2025-07-09 13:03 | Outpatient (BNVA) | payer OTHER, SELFPAY | PROVIDERS: PCP Internal Medicine; Visit Provider Family Medicine | DX: Z00.00 Encounter for general adult medical examination without abnormal findings (principal); Z12.11 Encounter for screening for malignant neoplasm of colon; R42 Dizziness and giddiness; G43.909 Migraine, unspecified, not intractable, without status migrainosus; M25.50 Pain in unspecified joint; G47.10 Hypersomnia, unspecified; Z83.719 Family history of colon polyps, unspecified | CPT/HCPCS: 96127 ==

== ENCOUNTER 2025-07-24 09:46 | Outpatient (REF) | payer OTHER, SELFPAY ==
--- OUTSIDE RECORDS SUMMARY | 2025-07-24 09:50 | XMS_ITS | Continuity of Care Document ---
Author Organization [facility] Larisa Muniz AONE [place] Address [address] [address] Care Team Providers Care Dj Instructor Name Role Phone ANY RICE Primary Care Provider [phone] ANY RICE Referring Provider Assessment Encounter Date Assessment Date Assessment LastModified by Organization Details LastModified Time 06/18/2025 06/18/2025 The above findings were discussed in detail with patient. She is now 9 weeks from left scapholunate ligament reconstruction, and concerned she is developing CRPS in the postoperative period. She is very stiff and has not made much progress with range of motion. We discussed this in detail. Treatment for this is extensive and aggressive therapy. I will give her Medrol Dosepak and start her on vitamin C to help combat this. She should continue go to PT as often as she can to do home exercises every day. I will talk to the physical therapy on starting a CRPS protocol for her. She will begin to wean out of her splints during the day. She can wear the splint at night for posture to help to keep the wrist out of the flexed position. She is going to increase activities as tolerated and start strengthening. This will hopefully help with her motion. She will follow-up with me in 4 weeks for repeat evaluation. All of her questions were answered, she is in agreement the plan. [email or web address] Not available 06/24/2025 10:37:19 Plan of Treatment Reminders Order Date Submit Date Provider Last Modified By Organization Details Last Modified Time Details Appointments POST-OP 2025 09:00A M Charo ho MD Not available Not available Not available Lab None recorde d. Referral None recorde d. Procedures None recorde d. Surgeries None recorde d. Imaging XR, wrist, 3 or more view 2024 025 [email or web address] [facility], [address], [place], [address], 06/20/2025 07:42:25 Medication Orders Medrol (Juanpablo) 4 mg tablets in a dose pack 2024 ELSBERRY [employer] [facility] #[id number], [address] [facility], [place], [place], [id number], 06/18/2025 11:42:09 Vitamin C 500 mg tablet 2024 ELSBERRY [id number], [address] [facility], [place], [place], [id number], 06/18/2025 11:42:15 Patient TargetsNo targets recorded. Patient Instructions Encounter Date Encounter Id Patient Instructions Last Modified By Organization Details Last Modified Time 06/18/2025 [id number] 3 views of the left wrist were ordered and reviewed today, demonstrates maintained alignment of the carpal bones without evidence of diastases between the scaphoid and lunate. There is diffuse demineralization of the bones diffusely. 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 [email or web address] Not available 06/24/2025 10:36:14 Reason for Referral None Reported. Problems Name Problem SNOMED Code Status Onset Date Resolution Date Notes Provider Name and Address Organization Details Recorded Time Closed fracture of scaphoid bone 77565695 Active [address], [place], [address], [place] [facility], P 5 14:49:31 Rupture of scapholunat e ligament of wrist 717507322 Active [address], [place], [address], [place] [facility], P 5 10:15:00 Complex regional pain syndrome type I of left upper limb 8965943994994 05 Active 2024 Charo ho MD [address], [place], [address], [place] [facility], P 11:41:07 Problem Notes None recorded. Procedures Surgical History Date Name Laterality Status Provider Name and Address Organization Details Recorded Time 05/20/20 25 ORTHOPAEDIC SURGERY - OTHER (SURG) completed Kay Salomon [facility], [facility] 05/21/2025 09:47:53 04/21/20 25 Cast Short Arm/Ulnar Gutter/Radial Gutter 11+ completed Puneet Casanova [facility], [facility] 04/21/2025 12:11:41 04/12/20 25 Cast Thumb Spica 11+ completed LOUIS MACHUCA PA-C [address], [place], [address], [place] [facility], [facility] 04/12/2025 10:52:29 03/24/20 25 Cast Short Arm/Ulnar Gutter/Radial Gutter 11+ completed Puneet Casanova [facility], [facility] 03/24/2025 10:12:23 03/24/20 25 LES finger joint injection completed Puneet Casanova [facility], [facility] 03/24/2025 10:10:35 Imaging Results None recorded. Procedure Notes None recorded. Medical Equipment None Reported. Allergies No known drug allergies Medications Name Sig Start Date Stop Date Status Note LastModified by Organization Details LastModified Time ibuprofen 800 mg tablet TAKE 1 TABLET BY MOUTH EVERY 8 HOURS NEEDED FOR SEVERE PAIN 03/03 completed Not Available Not Available Not Available meloxicam 15 mg tablet TAKE 1 TABLET BY MOUTH EVERY DAY FOR 14 DAYS active Not Available Not Available No t Available amoxicillin 500 mg tablet TAKE 1 TABLET BY MOUTH EVERY 8 HOURS UNTIL FINISHED 02/19 completed Not Available Not Available Not Available ascorbic acid (vitamin C) 500 mg tablet TAKE 1 TABLET BY MOUTH EVERY DAY active Not Available Not Available No t Available triamcinolo ne acetonide 40 mg/mL suspension for injection Take 40 mg by injection route. 2024 active Not Available Not Available Not Avai lable prednisone 50 mg tablet TAKE 1 TABLET BY MOUTH DAILY FOR 5 DAYS 03/03 completed Not Available Not Available Not Available diclofenac potassium 50 mg tablet TAKE 1 TABLET BY MOUTH THREE TIMES DAILY FOR 3 DAYS NEEDED FOR PAIN active Not Available Not Available No t Available ibuprofen 600 mg tablet TAKE 1 TABLET BY MOUTH THREE TIMES DAILY active Not Available Not Available No t Available methylpredn isolone 4 mg tablets in a dose pack FOLLOW PACKAGE DIRECTION S active Not Available Not Available No t Available oxycodone 5 mg tablet TAKE 1 TABLET BY MOUTH EVERY 4 TO 6 HOURS active Not Available Not Available No t Available cyclobenzap rine 5 mg tablet TAKE 1 TABLET BY MOUTH THREE TIMES DAILY FOR 5 DAYS 03/03 completed Not Available Not Available Not Available lidocaine (PF) 10 mg/mL (1 %) injection solution Take 1 mL by injection route. 2024 active Not Available Not Available Not Avai lable diclofenac 1 % topical gel APPLY 2 GRAMS TO THE AFFECTED AREA(S) BY TOPICAL ROUTE 4 TIMES PER DAY 2024 active Not Available Not Available Not Avai lable Zepbound 2.5 mg/0.5 mL subcutaneou s pen injector INJECT 1 SYRINGE SUBCUTANE OUSLY ONCE A WEEK FOR 4 WEEKS 03/03 completed Not Available Not Available Not Available Vitals None Recorded Social History None recorded. Functional Status Question Answer Note LastModified by Organization D etails LastModified Time What is your level of alcohol consumption? None [email or web address] Information not available 02/19/2025 Mental Status None recorded. Family History Nothing Reported. Medical History Condition Response Coronary Artery Disease N Gout N Hyperthyroidism N Blood Transfusion N MRSA N Emphysema N Depression N COPD N Hypothyroidism N Pacemaker N Vascular Disease N Gastrointestinal Disease N Anxiety Disorder N Autoimmune disease N Arthritis N Cancer N Stroke N High Cholesterol N Neurologic Disorder N Liver Disease N Organ Transplant N Arrhythmia N Rheumatoid Arthritis N Fibromyalgia N Kidney Disease N Allergies/Hayfever N Adverse Reaction to Anesthesia N Thyroid Problems N Anemia N Brain Injury N Heart Attack ([place]) N Osteopenia N Diabetes N Bleeding Disorder N Seizures/Epilepsy N AIDS/HIV N Congestive Heart Failure (CHF) N Asthma N Amputation N Reflux/GERD N Sleep Apnea N Hepatitis N Aneurysm N Heart Disease N Pulmonary Embolism N Hypertension N Osteoporosis N Gynecological HistoryNo gynecological history recorded. Obstetrics History GPAL:G 0 P 0 0 0 0 Past Encounters Encounter ID Performer Location Encounter Start Date Encounter Closed Date Diagnosis/Indication Diagnosis SNOMED-CT Code Diagnosis ICD10 Code Diagnosis IMO Codes Diagnosis Note [id number] Charo Montes MD [facility] [address] [address] 05/19/2025 12:43:09 05/19/2025 14:54:36 Pain of left wrist 3757357417 40313 M25.532 624172 Rupture of scapholunate ligament of wrist 776270076 S63.8X2D [id number] MD VAHE Schmidt [place] [address] [address] 06/18/2025 10:50:20 06/18/2025 11:43:12 Pain of left wrist 8719299029 09568 M25.532 690878 Rupture of scapholunate ligament of wrist 004719479 S63.8X2D 9174696 Complex re gional pain syndrome type I of left upper limb 7145576147 59420 G90.512 [id number] Health Concerns Section Related Observation LastModified by Organization Detai ls LastModified Time None Recorded Concern Status LastModified by Organization Details LastModified Time None Recorded Payers Encounter Date Sequence Insurance Name Policy Number Policy Red Covered Member ID Red Member ID Guarantor Name 06/18/[address] [place] [address] [id number] Bhavna Durbinhanna Canales [id number] Bhavnajohnathan Domingo Notes Date Note Type Note Provider Name and Address Organization Details Recorded Time 06/18/2025 text/html ROS as noted in the HPI She presents for postop follow-up status post left scapholunate ligament reconstruction on 03/15/2025 and removal of hardware on 05/20/2025, she is 9 weeks from her original surgery. She has been going to physical therapy to work on range of motion. She is very stiff. She is noticing a clawlike posture of her hand. She has pain over her incisions. Charo Montes MD [address], [place], [address], [place] [facility] 06/24/2025 10:37:29 OBGyn Episode No OBEpisode recorded.
--- OUTSIDE RECORDS SUMMARY | 2025-07-24 09:50 | XMS_ITS | Continuity of Care Document ---
Author Organization [facility] Larisa Muniz [facility]ONE [place] Address [address] [facility] [address] [place] [address] Care Team Providers Care Tool Dispatcher Name Role Phone ANY RICE Primary Care Provider ANY RICE Referring Provider Assessment Encounter Date Assessment Date Assessment LastModified by Organization Details LastModified Time 07/16/2025 07/16/2025 The above findings were discussed in detail with patient. She is 13 weeks status post left scapholunate ligament reconstruction complicated by CRPS in the postoperative period. She is making some improvement after doing a Medrol Dosepak and starting the vitamin C. She does continue to go to physical therapy. She notes improvement in flexion and extension of the fingers though continues to have significant stiffness especially with wrist extension. I do think IJ a splint will be helpful for her, I will write a prescription for the physical therapist to have this made. She will continue to go to PT and do home exercises. She can continue to take vitamin C. We again discussed physiatry which may help prescribe medications which can help with CRPS and nerve type symptoms, she like to hold off at this time. I will give her a prescription for diclofenac. She can continue with light duty work and a note was given to her today. She will follow-up with me in 6 weeks for repeat evaluation. All of her questions were answered, she is in agreement the plan. [email or web address] Not available 07/16/2025 13:04:45 Plan of Treatment Reminders Order Date Submit Date Provider Last Modified By Organization Details Last Modified Time Details Appointments POST-OP 2025 09:00A M Charo ho MD Not available Not available Not available Lab None recorded. Referral None recorded. Procedures None recorded. Surgeries None recorded. Imaging None recorded. Medication Orders diclofena c 1 % topical gel 2024 025 [id number], [address], [place], [place], [id number], 07/16/2025 13:05:08 Patient TargetsNo targets recorded. Patient InstructionsNo instructions recorded. Reason for Referral None Reported. Problems Name Problem SNOMED Code Status Onset Date Resolution Date Notes Provider Name and Address Organization Details Recorded Time Closed fracture of scaphoid bone 39069306 Active 2024 Charo ho MD [address], [place], [address], [place] [facility], P 5 14:49:31 Rupture of scapholunat e ligament of wrist 565882713 Active 2024 Charo ho MD [address], [place], [address], [place] [facility], P 5 10:15:00 Complex regional pain syndrome type I of left upper limb 4538073720748 05 Active 2024 Charo ho MD [address], [place], [address], [place] [facility], P 5 11:41:07 Problem Notes None recorded. Procedures Surgical History Date Name Laterality Status Provider Name and Address Organization Details Recorded Time 05/20/20 25 ORTHOPAEDIC SURGERY - OTHER (SURG) completed Kay Salomon [facility], P 05/21/2025 09:47:53 04/21/20 25 Cast Short Arm/Ulnar Gutter/Radial Gutter 11+ completed Puneet Casanova [facility], P 04/21/2025 12:11:41 04/12/20 25 Cast Thumb Spica 11+ completed [address], [place], [address], [facility], P 04/12/2025 10:52:29 03/24/20 25 Cast Short Arm/Ulnar Gutter/Radial Gutter 11+ completed Puneet Casanova [facility], P 03/24/2025 10:12:23 03/24/20 25 LES finger joint injection completed Puneet Casanova [facility], P 03/24/2025 10:10:35 Imaging Results None recorded. [...] Artery Disease N Gout N Hyperthyroidism N MRSA N Blood Transfusion N Emphysema N Depression N COPD N Hypothyroidism N Pacemaker N Vascular Disease N Gastrointestinal Disease N Anxiety Disorder N Autoimmune disease N Arthritis N Cancer N Stroke N High Cholesterol N Neurologic Disorder N Liver Disease N Organ Transplant N Rheumatoid Arthritis N Arrhythmia N Fibromyalgia N Kidney Disease N Allergies/Hayfever N Adverse Reaction to Anesthesia N Thyroid Problems N Anemia N Brain Injury N Heart Attack ([place]) N Osteopenia N Diabetes N Bleeding Disorder [...] ICD10 Code Diagnosis IMO Codes Diagnosis Note [id number] Charo Montes MD [place] [address] 06/18/2025 10:50:20 06/18/2025 11:43:12 Pain of left wrist 7802181286 16746 M25.532 655601 Rupture of scapholunate ligament of wrist 019680671 S63.8X2D 7437971 Complex re gional pain syndrome type I of left upper limb 1622070196 32539 G90.512 [id number] [place] [address] 07/16/2025 08:57:53 07/16/2025 09:39:20 Rupture of scapholunate ligament of wrist 509028147 S63.8X2D [id number] Health Concerns Section Related Observation LastModified by Organization Detai ls LastModified Time None Recorded Concern Status LastModified by Organization Details LastModified Time None Recorded Payers Encounter Date Sequence Insurance Name Policy Number Policy Red Covered Member ID Red Member ID Guarantor Name 07/16/[address] [place] [id number] Bhavna Canales [id number] Bhavna Domingo Notes Date Note Type Note Provider Name and Address Organization Details Recorded Time 07/16/2025 text/html ROS as noted in the HPI She presents for follow-up status post left scapholunate ligament reconstruction, date of surgery 03/15/2025, she is 13 weeks postop. I had prescribed a Medrol Dosepak and started her on vitamin C on her last visit with concern for CRPS. She notes improvement in swelling though continues to have significant stiffness especially in the wrist. Finger range of motion is improving though it is not full at this point. She does continue to sensitivity and nerve type symptoms at the dorsal hand over her incision. She is going to physical therapy 3 times a week and doing home exercises. Charo Montes MD [address], [place], [address], [place] [facility] 07/16/2025 13:05:25 OBGyn Episode No OBEpisode recorded.
--- OUTSIDE RECORDS SUMMARY | 2025-07-24 09:50 | XMS_ITS | Clinical Summary ---
Author Organization [facility] Address [address] [place] [address] Phone Care Team Providers Care Case Preparer And Liner Name Role Phone Barrington Mitchell MD Primary Care Provider [phone] Allergies No known active allergies Medications acetaminophen (TYLENOL) 500 mg tablet Take 1 tablet (500 mg total) by mouth every 6 (six) hours if needed for mild pain or moderate pain. Active Encounters Date Type Department Care Team Description 05/20/2025 12:24 PM EDT Anesthesia Event [facility] [address] [place] [phone] Amee Ni DO 05/20/2025 11:53 AM EDT - 05/20/2025 1:48 PM EDT Surgery [facility] [address] [place] [phone] Charo Montes MD LEFT WRIST HARDWARE REMOVAL 05/20/2025 10:11 AM EDT - 05/20/2025 2:42 PM EDT Hospital Encounter [facility] [address] [place] [phone] Charo Montes MD Discharge Disposition: Home or [...] on file Sexual Orientation Not on file Last Filed Vital Signs Vital Sign Reading [...] this topic Medical Devices Implanted Type Area Personal Injury Law Specialist Device Identifier Shelf Expiration Date Model / Serial / Lot Kit Dx Swivelock 3.5x8.5mm [place] Eyelet - Sn/A - [id number] Implanted:Qty : 1 on 03/15/2025 by Charo Montes MD at [facility] Sports Med Left: Hand [employer] 10/02/2025 AR-8978P / N/A / [id number] Kit H/W Lgmnt Augmnt Repair - Sn/A - [id number] Implanted:Qty : 1 on 03/15/2025 by Charo Montes MD at [facility] [employer] Sports Med Left: Hand [employer] 04/04/2028 AR-8978-C P / N/A / [id number] Procedures Procedure Name Priority Date/Time Associated Diagnosis [...] from Last 3 Months Insurance Care Teams Case Preparer And Liner Relationship Specialty Start Date End Date Barrington Mitchell MD [address] [place] [address] Dr Blanca [place] PCP - General Family Medicine 03/08/25
--- OUTSIDE RECORDS SUMMARY | 2025-07-24 09:50 | XMS_ITS | Data Portability ---
Author Organization [facility] Larisa Muniz AONE [place] Address [address] [place] [address] Care Team Providers Care Summer School Coordinator Name Role Phone ANY RICE Primary Care Provider ANY RICE Referring Provider [phone] Assessment Encounter Date Assessment Date Assessment LastModified by Organization Details LastModified Time 04/12/2025 04/12/2025 Patient presents for a cast change. Wound looks good. Neurologically intact. Will follow-up as scheduled [email or web address] Not available 04/12/2025 10:53:42 04/21/2025 04/21/2025 The above findings were discussed in detail the patient. She is 5 weeks postop status post left scapholunate ligament reconstruction and left thumb CMC steroid injection. She has increased swelling and some erythema at her PIP and MP joints. I will prescribe a Medrol Dosepak to help with the swelling and allow for continued therapy to work on range of motion to aid in stiffness. She will go back into a cast for 4 more weeks, at which point we will remove the cast and pull the pin in the office. She will continue to work on range of motion of the digits with physical therapy and at home. She will lift nothing heavier than 5 pounds, no pushing or pulling. She will keep the cast clean and dry. She will return to see me in 4 weeks for cast removal and pin pull, at which point she will go into a removable splint and start physical therapy on her wrist. I will give her a note that states she will be out of work until she comes back to see me in 4 weeks. All of her questions were answered, she is in agreement with the plan. [email or web address] Not available 04/21/2025 12:08:18 05/19/2025 05/19/2025 Findings were discussed in detail with patient. She is 8 weeks postop status post left scapholunate ligament reconstruction. Her cast was removed today. We discussed the pin pull at this point. Unfortunately after attempting in office incision and pin removal, I was unable to localize the pin and the decision was made to proceed with operating room procedure with sedation and fluoroscopy for localization. The patient elected to proceed with surgery at this point. Risks of surgery were discussed with the patient which include but are not limited to bleeding, infection, injury to nerves, tendons, vessels, pain, stiffness, non-relief of symptoms, recurrence, needing more surgery in the future as well as risks of anesthesia. All questions were answered to the patient's satisfaction. They understood these risks and agreed to proceed, consent was obtained today. I will clear her in the office today. I will help to get into the operating room within the next few days to allow for progression with range of motion and physical therapy. She would placed into a custom splint by the physical therapist today. She will wear this at all times until I see her for follow-up at surgery. All of her questions were answered, she is in agreement the plan. Procedure note We discussed pin pull in the office, the procedure was explained to the patient and she had verbalized verbal consent. After localizing the pin with x-rays, local anesthesia was infiltrated at the site. After appropriate anesthetic was confirmed, a small incision over the presumed pin site was made with a 15 blade knife. Blunt dissection was taken through the soft tissue. I attempted to localize the pin head however was unable to do so with blunt dissection and a limited incision. I was unable to localize the tip of the pin and the patient was having discomfort with procedure and the decision was made to abort the procedure and proceed with surgical removal with sedation medication. The incision was thoroughly irrigated and Steri-Strip bandages were placed. The wrist was placed in a soft Coban wrap. She tolerated the procedure well. [email or web address] Not available 05/19/2025 16:25:34 06/18/2025 06/18/2025 The above findings were discussed [...] answered, she is in agreement the plan. [email or web address] Not available 06/24/2025 10:37:19 07/16/2025 07/16/2025 The above findings were discussed [...] answered, she is in agreement the plan. [email or web address] Not available 07/16/2025 13:04:45 Plan of Treatment Reminders Order Date Submit Date Provider Last Modified By Organization Details Last Modified Time Details Appointments POST-OP 2025 09:00A M Charo ho MD Not available Not available Not available Lab None recorde d. Referral None recorde d. Procedures None recorde d. Surgeries orthopa edic surgery - other (SURG) 2024 025 SIMBA Not available 05/21/2025 09:47:46 Imaging XR, wrist, 3 or more view 2024 025 [email or web address] [facility], [address], [place], [address], 06/20/2025 07:42:25 XR, wrist, 3 or more view 2024 025 [facility], [address], [address], [place], [address], 05/19/2025 14:54:36 XR, wrist, 3 or more view 2024 025 [email or web address] [facility], [address], [address], [place], [address], 04/21/2025 12:08:18 Medication Orders diclofe nac 1 % topical gel 2024 [place] [id number], [address] [place], [id number], 07/16/2025 13:05:08 Medrol (Juapnablo) 4 mg tablets in a dose pack 2024 025 [place] [facility], [address] [place], [place], [id number], 06/18/2025 11:42:09 Vitamin C 500 mg tablet 2024 025 [id number], [address] [facility], [place], [place], [id number], 06/18/2025 11:42:15 Medrol (Juanpablo) 4 mg tablets in a dose pack 2024 025 [place] [id number], [address] [facility] [place], [place], [id number], 04/21/2025 12:01:17 Patient TargetsNo targets recorded. Patient Instructions Encounter Date Encounter Id Patient Instructions Last Modified By Organization Details Last Modified Time 04/21/2025 [id number] views of the l eft wrist were ordered and reviewed today, demonstrates scaphocapitate pin in position without evidence of migration or failure. There is anatomic alignment of the carpal bones. No diastases of the scapholunate interval. Diffuse demineralization of the bones. Thumb CMC arthritis. [email or web address] Not available 04/21/2025 12:05:41 05/19/2025 [id number] views of the l eft wrist were ordered and reviewed today, demonstrates maintenance of scapholunate interval without evidence of diastases. There is pin in place without evidence of migration or failure. There is diffuse demineralization of the bones. [email or web address] Not available 05/19/2025 16:21:36 06/18/2025 [id number] views of the l eft wrist were ordered and reviewed today, demonstrates [...] Recorded Time Closed fracture of scaphoid bone 22452020 Active [address], [place], [address], [place] [facility], P 5 14:49:31 Rupture of scapholunat e ligament of wrist 244894807 Active [address], [place], [address], [place] [facility], P 5 10:15:00 Complex regional pain syndrome type I of left upper limb 4416357084337 05 Active [address], [place], [address], [place] [facility], P 11:41:07 Problem Notes None recorded. Procedures Surgical History Date Name Laterality Status Provider Name and Address Organization Details Recorded Time 05/20/20 25 ORTHOPAEDIC SURGERY - OTHER (SURG) completed Kay Salomon [facility] 05/21/2025 09:47:53 04/21/20 25 Cast Short Arm/Ulnar Gutter/Radial Gutter 11+ completed Puneetthomas Casanova [facility], [facility] 04/21/2025 12:11:41 04/12/20 25 Cast Thumb Spica 11+ completed LOUIS MACHUCA PA-C [address], [place], [address], [place] [facility], [facility] 04/12/2025 10:52:29 03/24/20 25 Cast Short Arm/Ulnar Gutter/Radial Gutter 11+ completed Puneet Wheat [facility] 03/24/2025 10:12:23 03/24/20 25 LES finger joint injection completed Puneet Wheat [facility] 03/24/2025 10:10:35 Imaging Results None recorded. [...] Not Available Not Available Not Available Vitals Date Recorded Body height Oxygen saturation Heart rate Systolic And Diastolic Provider Name and Address Organization Details Last Updated DateTime 05/19/2025 160.02 cm 98 % 57 /min 128/82 mm[Hg] Nancy Haddad [facility] 05/19/2025 14:57:10 Social History None recorded. Functional Status Question [...] Anemia N Brain Injury N Heart Attack ([place]) N Osteopenia N Diabetes N Bleeding Disorder [...] ICD10 Code Diagnosis IMO Codes Diagnosis Note [id number] MD ANAID Schmidt[address] [address] 02/19/2025 14:07:46 02/19/2025 15:06:15 Pain of left wrist 2220659869 44227 M25.532 [id number] Closed fra cture of scaphoid bone 34317231 S62.002A [id number] MD VAHE Schmidt [address] [address] 03/03/2025 08:41:23 03/03/2025 10:02:31 Rupture of scapholunate ligament of wrist 069996660 S63.8X2A [id number] Charo Montes MD [address] [address] 03/24/2025 09:11:21 03/24/2025 10:38:11 Pain of left wrist 0693048508 23120 M25.532 569457 Arthritis of first carpometacarpal joint of right hand 7839271882 044644 M18.11 64420544 Rupture of scapholunate ligament of wrist 866165424 S63.8X2D [id number] LOUIS MACHUCA PA-C [facility] [address] [place] [address] 04/12/2025 09:54:44 04/12/2025 11:40:57 Closed fracture of scaphoid bone 86381529 S62.002A 97266950 Rupture of scapholunate ligament of wrist 402555479 S63.8X2D 2035055 Surgical follow-up 20697 7352 Z09 [id number] Charo Montes MD [address] [address] 04/21/2025 11:09:43 04/21/2025 12:08:17 Pain of left wrist 6222554503 25828 M25.532 947768 Rupture of scapholunate ligament of wrist 289282975 S63.8X2D [id number] Charo Montes MD [address] [address] 05/19/2025 12:43:09 05/19/2025 14:54:36 Pain of left wrist 2628465172 84504 M25.532 479532 Rupture of scapholunate ligament of wrist 988418031 S63.8X2D [id number] Charo Montes MD [address] [address] 06/18/2025 10:50:20 06/18/2025 11:43:12 Pain of left wrist 8759704143 13634 M25.532 604119 Rupture of scapholunate ligament of wrist 655951500 S63.8X2D 0758342 Complex re gional pain syndrome type I of left upper limb 4051195808 61711 G90.512 [id number] Charo Montes MD [place] [address] 07/16/2025 08:57:53 07/16/2025 09:39:20 Rupture of scapholunate ligament of wrist 252730273 S63.8X2D 4635124 Health Concerns Section Related Observation LastModified by Organization Detai ls LastModified Time None Recorded Concern Status LastModified by Organization Details LastModified Time None Recorded Advance Directives Directive None Recorded Payers Insurance Date Sequence Insurance Name Policy Number Policy Red Covered Member ID Red Member ID Guarantor Name 07/19/[address] [place] [address] [id number] Bhavna Canales [id number] Bhavna Domingo Notes Date Note Type Note Provider Name and Address Organization Details Recorded Time 04/12/2025 text/html Patient is a 54-year-old female who presents today for a cast change. She underwent surgery performed by Dr. Montes on 03/15/2025 for ligament reconstruction. Overall she is doing well. She felt that her cast was snug but she also got it wet. S[address], [place], [address], [place] [facility] 04/12/2025 10:54:38 04/21/2025 text/html ROS as noted in the HPI She presents for postop follow-up visit status post left scapholunate ligament reconstruction and left thumb CMC injection, date of surgery 03/15/2025, she is 5 weeks postop. She presented for unscheduled visit on 04/12/2025 to have her cast change. She is also been noting increased swelling and redness at her MP and PIP joints. This started last week and has been getting slightly better. She has been going to physical therapy working on range of motion of the digits. She has noted improvement in motion however she had a small setback when the swelling had started last week. Puneet goddard, [facility] 04/21/2025 12:11:43 05/19/2025 text/html ROS as noted in the HPI She presents for postop follow-up visit status post left scapholunate ligament reconstruction and left thumb CMC injection, date of surgery 03/15/2025, she is 8 weeks postop. She has been in a cast. She presents today for cast removal and pin pull. She has been going to physical therapy to work on finger range of motion and edema control. She did take the Medrol Dosepak. She has noted improvement in swelling in the fingers though does continue to have some mild swelling into the digits. She has limited motion of the fingers. MD Sathish [address], [place], [address], [facility] 05/19/2025 16:25:48 06/18/2025 text/html ROS as noted in the [...] hand. She has pain over her incisions. MD Sathish [address], [place], [address], [facility] 06/24/2025 10:37:29 07/16/2025 text/html ROS as noted in the [...] and doing home exercises. Charo Montes MD [address], [place], [address], [facility] 07/16/2025 13:05:25 OBGyn Episode No OBEpisode recorded.
--- OUTSIDE RECORDS SUMMARY | 2025-07-24 09:50 | XMS_ITS | Continuity of Care Document ---
Author Organization [place] [facility] Larisa Muniz AONE [place] Address [address] [facility] [address] [place] [address] Care Team Providers Care Optometric Assistant Name Role Phone ANY RICE Primary Care Provider ANY RICE Referring Provider Assessment Encounter Date Assessment Date Assessment LastModified by Organization Details LastModified Time 05/19/2025 05/19/2025 Findings were discussed in detail [...] procedure well. [email or web address] Not available 05/19/2025 16:25:34 Plan of Treatment Reminders Order Date Submit Date Provider Last Modified By Organization Details Last Modified Time Details Appointments POST-OP 2025 09:00A M Charo ho MD Not available Not available Not available Lab None recorded. Referral None recorded. Procedures None recorded. Surgeries orthopaed ic surgery - other (SURG) 2024 025 SIMBA Not available 05/21/2025 09:47:46 Imaging XR, wrist, 3 or more view 2024 025 [email or web address] [facility], [address], [place], [address], 05/19/2025 14:54:36 Medication Orders None recorded. Patient TargetsNo targets recorded. Patient Instructions Encounter Date Encounter Id Patient Instructions Last Modified By Organization Details Last Modified Time 05/19/2025 [id number] views of the l eft wrist were ordered and reviewed today, demonstrates maintenance of scapholunate interval without evidence of diastases. There is pin in place without evidence of migration or failure. There is diffuse demineralization of the bones. [email or web address] Not available 05/19/2025 16:21:36 Reason for Referral None Reported. Problems Name Problem SNOMED Code Status Onset Date Resolution Date Notes Provider Name and Address Organization Details Recorded Time Closed fracture of scaphoid bone 37780444 Active 2024 Charo ho MD [address], [place], [address], [place] [facility], [facility] 5 14:49:31 Rupture of scapholunat e ligament of wrist 668855780 Active 2024 Charo ho MD [address], [place], [address], [place] [facility], [facility] 5 10:15:00 Complex regional pain syndrome type I of left upper limb 6853569883602 05 Active 2024 Charo ho MD [address], [place], [address], [place] [facility], [facility] 11:41:07 Problem Notes None recorded. Procedures Surgical History Date Name Laterality Status Provider Name and Address Organization Details Recorded Time 05/20/20 25 ORTHOPAEDIC SURGERY - OTHER (SURG) completed Kay Salomon [facility] 05/21/2025 09:47:53 04/21/20 25 Cast Short Arm/Ulnar Gutter/Radial Gutter 11+ completed Puneet Casanova [facility] 04/21/2025 12:11:41 04/12/20 25 Cast Thumb Spica 11+ completed LOUIS MACHUCA PA-C [address], [place], [address], [place] [facility], [facility] 04/12/2025 10:52:29 03/24/20 25 Cast Short Arm/Ulnar Gutter/Radial Gutter 11+ completed Puneet Casanova [place] [facility] 03/24/2025 10:12:23 03/24/20 25 LES finger joint injection completed Puneet Casanova [facility] 03/24/2025 10:10:35 Imaging Results None recorded. [...] mm[Hg] Nancy Haddad [facility] 05/19/2025 14:57:10 Social History None recorded. [...] Anemia N Brain Injury N Heart Attack ([place]) N Osteopenia N Diabetes N Bleeding Disorder [...] ICD10 Code Diagnosis IMO Codes Diagnosis Note [id number] Charo Montes MD [place] [address] 04/21/2025 11:09:43 04/21/2025 12:08:17 Pain of left wrist [id number] 15738 M25.532 573868 Rupture of scapholunate ligament of wrist 015455984 S63.8X2D 9075155 [id number] Charo Montes MD [place] [address] 05/19/2025 12:43:09 05/19/2025 14:54:36 Pain of left wrist 0741671059 05383 M25.532 063112 Rupture of scapholunate ligament of wrist 921308495 S63.8X2D [id number] Health Concerns Section Related Observation LastModified by Organization Detai ls LastModified Time None Recorded Concern Status LastModified by Organization Details LastModified Time None Recorded Payers Encounter Date Sequence Insurance Name Policy Number Policy Red Covered Member ID Red Member ID Guarantor Name 05/19/[address] [place] [address] [id number] Bhavna Canales [id number] Bhavna Domingo Notes Date Note Type Note Provider Name and Address Organization Details Recorded Time 05/19/2025 text/html ROS as noted in the [...] She has limited motion of the fingers. Charo Montes MD [address], [place], [address], [facility] 05/19/2025 16:25:48 OBGyn Episode No OBEpisode recorded.
[2025-07-24 10:03] LABS: MANUAL DIFF FLAG NO
[2025-07-24 10:58] LABS: Hematocrit 39.7 % (37.0-47.0); Hemoglobin 13.4 g/dl (12.0-16.0); Imm Gran Abs Auto 0.00 X10*3/uL (0.00-0.03); Imm Gran Pct Auto 0.0 % (0.0-0.4); Lymphocytes Absolute Auto 1.8 X10*3/uL (1.2-4.9); Mean Corpuscular HGB Conc 33.8 g/dl (31.0-35.0); Mean Corpuscular Hemoglobin 29.1 pg (27.0-33.0); Mean Corpuscular Volume 86.3 fL (80.0-98.0); NRBC Abs Auto 0.000 X10*3/uL (0.0-0.012); NRBC Pct Auto 0.0 /100WBC (0.0-0.2); Platelet Count 318 X10*3/uL (160-400); Red Blood Count 4.60 X10*6/uL (4.20-5.50); White Blood Count 4.3 X10*3/uL (4.8-10.8)
[2025-07-24 11:21] LABS: Appearance Urine Cloudy; Glucose Urine UA Negative (Negative); PH 8.0 (5.0-9.0); Specific Gravity - Urine 1.015 (1.005-1.025); UMIC TRIGGER UACC YES
[2025-07-24 11:30] LABS: Cholesterol 218 mg/dL (<200); HDL Cholesterol 56 mg/dL (>40); Iron 144 mcg/dL (30-160); Percent Iron Saturation 52 % (15-50); Total Iron Binding Capacity 275 mcg/dL (228-428); Triglycerides 71 mg/dL (<150); Unsaturated Iron Binding 131 ug/dL
[2025-07-24 11:37] LABS: UACC Culture Trigger YES
[2025-07-24 11:55] LABS: Folate 7.5 ng/mL (> or = 4.0); Vitamin B12 820 pg/mL (200-900)
== END 2025-07-24 09:47 | disposition home or self-care (01) ==
LOC: HO.LAB 09:46
PROVIDERS: PCP Family Medicine; Visit Provider Family Medicine
DX: Z00.00 Encounter for general adult medical examination without abnormal findings (principal); Z01.84 Encounter for antibody response examination; E53.8 Deficiency of other specified B group vitamins; I10 Essential (primary) hypertension; M25.50 Pain in unspecified joint; E55.9 Vitamin D deficiency, unspecified; G47.30 Sleep apnea, unspecified
CPT/HCPCS: 36415; 80061; 81001; 81003; 82043; 82306; 82570; 82607; 82746; 83540; 84443; 85025; 85652; 86038; 86141; 86431; 87086